=== PATIENT | female | born 1990 | race Caucasian/White ===

== ENCOUNTER 2018-07-11 07:25 | Outpatient (CLI) | payer OTHER ==
[~2018-07-11 07:25] MED LIST: DOLOGESIC CAPSU1 CAP PO; DROSPIRENONE PO; ETHINYL ESTRADIOL PO; LEVOMEFOLATE PO; YAZ 28 TABLET1 TAB PO
== END 2018-07-11 07:32 | disposition home or self-care (01) ==
LOC: MRI 07:25
DX: M54.5 Low back pain (principal)
CPT/HCPCS: 72148

== ENCOUNTER 2020-08-12 08:00 | Outpatient (CLI) | payer OTHER | END 2020-08-12 08:30 | disposition home or self-care (01) | LOC: PPH VACUNA 08:00 | DX: Z23 Encounter for immunization (principal) ==

== ENCOUNTER 2020-09-02 08:00 | Outpatient (CLI) | payer OTHER | END 2020-09-02 08:30 | disposition home or self-care (01) | LOC: PPH VACUNA 08:00 | DX: Z23 Encounter for immunization (principal) ==